=== PATIENT | male | born 1940 | race Caucasian/White ===

== ENCOUNTER → 2016-08-10 | Outpatient (CLI) | payer OTHER ==
--- NOTE | 2016-08-10 10:03 | US ---
Bilateral Duplex/Doppler Carotid Sonography Indication: 75-year-old with history of hypertension and coronary artery disease. Surveillance. Technique: The cervical portions of the carotid and vertebral arteries were imaged and interrogated b y color and pulsed Duplex/Doppler. Spectral analysis was performed. Comparison: Carotid Doppler dated April 29, 2009. Findings: Right Carotid: Right ICA peak systolic velocity = 66 cm/sec (Previously 76 cm/sec) Right CCA peak systolic velocity = 92 cm/sec (87) Right ECA peak systolic velocity = 69 cm/sec (65) Right ICA/CCA systolic velocity ratio = 0.72 (0.86) Trace noncalcified plaque along the posterior wall of the right carotid bulb results in less than 10% narrowing. No ulcerative plaque or flow-limiting stenosis. Left Carotid: Left ICA peak systolic velocity = 80 cm/sec (Previously 73 cm/sec) Left CCA peak systolic velocity = 83 cm/sec (95) Left ECA peak systolic velocity = 98 cm/sec (104) Left ICA/CCA systolic velocity ratio = 0.97 (0.76) Minimal calcified plaque in the mid left common carotid artery and along the posterior wall of the or igin of the left internal carotid artery is new since 2008 and results in less than 20% narrowing on grayscale imaging. No ulcerative plaque or flow-limiting stenosis. Vertebral Arteries: Antegrade flow is shown by pulsed Doppler of each vertebral artery. Impression: 1. Minimal bilateral carotid plaque. No flow-limiting stenosis or ulcerated plaque. 2. Bilateral vertebral arteries are patent with antegrade flow. Measurement of carotid stenosis is based on velocity parameters that correlate the residual internal carotid diameter with [place] Symptomatic Carotid Endarterectomy Trial (NASCET) based stenosis levels.
== END ==
LOC: BMCIMAGING 09:04
PROVIDERS: ATTEND Internal Medicine
DX: I65.23 Occlusion and stenosis of bilateral carotid arteries (principal); I25.10 Atherosclerotic heart disease of native coronary artery without angina pectoris; I10 Essential (primary) hypertension

== ENCOUNTER → 2017-01-26 | Outpatient (CLI) | payer OTHER | LOC: FIMAGING 07:01 | PROVIDERS: ATTEND Physician Assistant | DX: M99.73 Connective tissue and disc stenosis of intervertebral foramina of lumbar region (principal); M89.38 Hypertrophy of bone, other site ==

== ENCOUNTER → 2017-09-02 | Outpatient (CLI) | payer OTHER | LOC: BMCIMAGING 11:57 | PROVIDERS: ATTEND Internal Medicine | DX: R06.02 Shortness of breath (principal) ==